=== PATIENT | female | born 1965 | race Caucasian/White ===

== ENCOUNTER 2024-08-11 16:10 | Emergency (ER) | payer OTHER ==
[2024-08-11] MEDS: Acetaminophen 500 MG Tab PO ONE (16:33)
== END 2024-08-11 16:56 | disposition home or self-care (01) ==
LOC: KA.ED 16:10 → MERGE 16:10 → KA.ED 16:56
DX: S01.01XA Laceration without foreign body of scalp, initial encounter (principal); Z88.5 Allergy status to narcotic agent; Z88.8 Allergy status to other drugs, medicaments and biological substances; W01.0XXA Fall on same level from slipping, tripping and stumbling without subsequent striking against object, initial encounter; Y92.89 Other specified places as the place of occurrence of the external cause; Y99.0 Civilian activity done for income or pay
CPT/HCPCS: 12002; 99283; A9270-GY